=== PATIENT | male | born 1975 | race Caucasian/White ===

== ENCOUNTER 2022-01-18 16:13 | Outpatient (CLI) | payer OTHER, SELFPAY ==
--- NOTE | ~2022-01-18 | XR_ITS ---
XR elbow LT 2V DATE: 01/18/2022 16:30 INDICATION: Left elbow pain, limited range of motion TECHNIQUE: AP and lateral views COMPARISON: None FINDINGS: There is an anchor device at the neck of the proximal radius. No fracture or dislocation or joint effusion. No periosteal reaction or bone destruction. IMPRESSION: Radiopaque anchor device at neck of left radius Reviewed, dictated and finalized at location A. ANALYST
== END 2022-01-18 16:14 | disposition home or self-care (01) ==
LOC: ANHIMG 16:16
PROVIDERS: PCP Emergency Medicine; Visit Provider Emergency Medicine
DX: M25.522 Pain in left elbow (principal); Z96.89 Presence of other specified functional implants
CPT/HCPCS: 73070